=== PATIENT | female | born 1950 | race American Indian/Alaskan Native ===

== ENCOUNTER 2019-09-23 08:44 | Outpatient (CLI) | payer MEDICARE ==
--- NOTE | 2019-09-23 09:43 | Cat Scan Report ---
CT ABDOMEN AND PELVIS WITHOUT CONTRAST HISTORY: RETROPERITONEAL FIBROSIS. COMPARISON: None. TECHNIQUE: Helical CT images of the abdomen and pelvis were obtained without administration of intrav enous contrast. Sagittal and coronal reformatted images were reviewed. All CT scans at this location are performed using CT dose reduction for ALARA by means of automated exposure control. FINDINGS: Abdomen/pelvis: There is nonspecific soft tissue density containing scattered calcifications surroun ding the infrarenal aorta and IVC measuring up to 4.8 x 2.6 cm in axial plane and 6.8 cm in craniocau tao plane. This could be related to retroperitoneal fibrosis. There appears to be minimal tethering o f the mid right ureter with minimal dilatation of the proximal right ureter. The left ureter appears uninvolved. The liver is normal size and contour. 2 right hepatic lobe cysts measure 1 cm and 2.7 cm. The biliary system, pancreas, spleen, kidneys and adrenal glands are unremarkable. The bowel loops are normal caliber and wall thickness. Normal appendix. The uterus is mildly enlarged and lobular. Multiple small fibroids are identified some of which demon strate calcific degeneration. The adnexa, distal ureters and bladder are unremarkable. Lungs/bones: The lung bases are clear. Heart size is borderline. No acute osseous findings. IMPRESSION: Findings consistent with retroperitoneal fibrosis as described above. Liver cysts. Uterine fibroid disease. Signer Name: Janes Wilder Jr, MD Signed: 09/23/2019 9:38 AM Workstation Name: [id number]
== END 2019-09-23 08:45 | disposition home or self-care (01) ==
LOC: CT 08:44
PROVIDERS: ATTEND Internal Medicine Nephrology
DX: N85.2 Hypertrophy of uterus (principal); K76.89 Other specified diseases of liver; N13.5 Crossing vessel and stricture of ureter without hydronephrosis
CPT/HCPCS: 74176

== ENCOUNTER 2019-10-06 11:33 | Emergency (ER) | payer MEDICARE ==
[2019-10-06 11:41] VITALS: BP 126/81
--- NOTE | 2019-10-06 11:46 | Event Note ---
ED Screening Note Date of service: 10/06/19 Time: 11:43 ED Screening Note: 69 y o f presents with intermittent prod cough with fever x 1 week no relief with meds This initial assessment/diagnostic orders/clinical plan/treatment(s) is/are subject to change based on patients health status, clinical progression and re- assessment by fellow clinical providers in the ED. Further treatment and workup at subsequent clinical providers discretion. Patient/guardian urged not to elope from the ED as their condition may be serious if not clinically assessed and managed. Initial orders include: cxr
--- NOTE | 2019-10-06 13:01 | XRay Report ---
CHEST 2 VIEWS INDICATION / CLINICAL INFORMATION: cough/fever. COMPARISON: None available. FINDINGS: SUPPORT DEVICES: None. HEART / MEDIASTINUM: No significant abnormality. LUNGS / PLEURA: No significant pulmonary or pleural abnormality. No pneumothorax. ADDITIONAL FINDINGS: No significant additional findings. IMPRESSION: 1. No acute findings. Signer Name: Geovanni Biswas MD Signed: 10/06/2019 12:57 PM Workstation Name: [id number]
[2019-10-06] MEDS ORDERED: BENZONATATE 100 MG CAP PO ONE (13:10)
[2019-10-06] MEDS ORDERED: IBUPROFEN 600 MG TAB PO ONE (13:10)
--- NOTE | 2019-10-06 14:08 | Emergency Department Report ---
Upper Respiratory HPI - HPI Chief Complaint: Upper Respiratory Infection Stated Complaint: COLD/SINUS Time Seen by Provider: 10/06/19 11:51 Duration: 1 week URI Symptoms: Rhinorrhea: Yes, Sore Throat: No, Ear Pain: No, Cough: Yes, Shortness of Breath: No, Sick Contacts: No, Unable to Take Fluids: No, Urine Output Abnormal: No, Listless Behavior: No Other History: This is a 69-year-old female nontoxic, well nourished in appearance, no acute signs of distress presents to the ED with c/o of productive cough, rhinorrhea, nasal congestion x1 week. Patient describes productive cough as yellow mucus production. Patient denies any sick contacts. Patient denies any recent travels, long car, recent hospital stays. Patient denies any calf pain or calf tenderness. Patient denies any chest pain, short of breath, fever, chills, nausea, vomiting, hemoptysis, numbness, tingling, headache or stiff neck. Patient denies any allergies with past medical history of hypertension. - Home Meds and Allergies Home Medications: Home Medications Medication Instructions Recorded Confirmed Last Taken Amlodipine Besylate/Benazepril 1 cap PO DAILY 08/24/18 08/24/18 08/24/18 05:00 [Amlodipine-Benazepril 5-10 mg] 1 Ergocalciferol [Vitamin D2] 1 cap PO 1XW 08/24/18 08/24/18 08/20/18 1 Potassium Chloride 20 meq PO DAILY 08/24/18 08/24/18 08/23/18 20 meq Simvastatin 40 mg PO QHS 08/24/18 08/24/18 08/23/18 40 mg hydroCHLOROthiazide [HCTZ] 25 mg PO DAILY 08/24/18 08/24/18 08/24/18 25 mg Previous Rx's Medication Instructions Recorded Last Taken Type Benzonatate [Tessalon Perles] 100 mg PO Q8HR PRN #20 capsule 10/06/19 Unknown Rx Prednisone [predniSONE 10 mg 10 mg PO .TAPER #1 tab.ds.pk 10/06/19 Unknown Rx (6-Day Pack, 21 Tabs)] Allergies/Adverse Reactions: Allergies Allergy/AdvReac Type Severity Reaction Status Date / Time No Known Allergies Allergy Unverified 08/24/18 05:59 ED Review of Systems ROS: Stated complaint: COLD/SINUS Other details as noted in HPI Constitutional: denies: chills, fever Eyes: denies: eye pain, eye discharge, vision change ENT: congestion. denies: ear pain, throat pain Respiratory: cough. denies: shortness of breath, wheezing Cardiovascular: denies: chest pain, palpitations Endocrine: no symptoms reported Gastrointestinal: denies: abdominal pain, nausea, diarrhea Genitourinary: denies: urgency, dysuria, discharge Musculoskeletal: denies: back pain, joint swelling, arthralgia Skin: denies: rash, lesions Neurological: denies: headache, weakness, paresthesias Psychiatric: denies: anxiety, depression Hematological/Lymphatic: denies: easy bleeding, easy bruising ED Past Medical Hx - Past Medical History Previous Medical History?: Yes Hx Hypertension: Yes Additional medical history: elevated cholesterol,allergies - Surgical History Past Surgical History?: Yes Additional Surgical History: Right leg mass removal - Social History Smoking Status: Former Smoker - Medications Home Medications: Home Medications Medication Instructions Recorded Confirmed Last Taken Type Amlodipine Besylate/Benazepril 1 cap PO DAILY 08/24/18 08/24/18 08/24/18 05:00 History [Amlodipine-Benazepril 5-10 mg] 1 Ergocalciferol [Vitamin D2] 1 cap PO 1XW 08/24/18 08/24/18 08/20/18 History 1 Potassium Chloride 20 meq PO DAILY 08/24/18 08/24/18 08/23/18 History 20 meq Simvastatin 40 mg PO QHS 08/24/18 08/24/18 08/23/18 History 40 mg hydroCHLOROthiazide [HCTZ] 25 mg PO DAILY 08/24/18 08/24/18 08/24/18 History 25 mg Benzonatate [Tessalon Perles] 100 mg PO Q8HR PRN #20 capsule 10/06/19 Unknown Rx Prednisone [predniSONE 10 mg 10 mg PO .TAPER #1 tab.ds.pk 10/06/19 Unknown Rx (6-Day Pack, 21 Tabs)] ED Bronchiolitis Physical Exam - Exam General: Vital signs noted. No distress. Alert and acting appropriately. Neurologic: Alert and oriented, no deficits. Musculoskeletal: Unremarkable. ED Bronchiolitis Tests - Testing Testing: CXR: Normal/Negative ED Physical Exam - General Limitations: No Limitations General appearance: alert, in no apparent distress - Head Head exam: Present: atraumatic, normocephalic - Eye Eye exam: Present: normal appearance - Neck Neck exam: Present: normal inspection, full ROM. Absent: tenderness, men ingismus, lymphadenopathy - Respiratory Respiratory exam: Present: normal lung sounds bilaterally. Absent: respiratory distress, wheezes, rales, rhonchi, stridor, chest wall tenderness, accessory muscle use, decreased breath sounds, prolonged expiratory - Cardiovascular Cardiovascular Exam: Present: regular rate, normal rhythm, normal heart sounds. Absent: irregular rhythm, systolic murmur, diastolic murmur, rubs, gallop - Extremities Exam Extremities exam: Present: normal inspection, full ROM - Back Exam Back exam: Present: normal inspection, full ROM - Neurological Exam Neurological exam: Present: alert, oriented X3, normal gait - Psychiatric Psychiatric exam: Present: normal affect, normal mood - Skin Skin exam: Present: warm, dry, intact, normal color. Absent: rash ED Course Vital Signs 10/06/19 11:36 Temperature 99 F Pulse Rate 93 H Respiratory 18 Rate Blood Pressure 126/81 O2 Sat by Pulse 97 Oximetry - Reevaluation(s) Reevaluation #1: 10/06/19 14:19 Patient is speaking in full sentences with no signs of distress noted. ED Medical Decision Making - Medical Decision Making This is a 69-year-old female that presents with viral bronchitis. Patient is stable and was examined by me. Chest x-ray has been obtained and dictated by radiologist with normal exam. Patient is notified of x-ray results with no questions noted. She'll be treated with supportive care. Patient was instructed to increase hydration, rest and take Motrin for fever episodes. Patient received motrin and tesslone perrls in the ED. Vitals stable. Patient is nonfebrile and normal heart rate. Patient was instructed Follow-up with a primary care doctor in 3-5 days or if symptoms worsen and continue return to emergency room as soon as possible. At time time of discharge, the patient does not seem toxic or ill in appearance. No acute signs of distress noted. Patient agrees to discharge treatment plan of care. No further questions noted by the patient. Critical care attestation.: If time is entered above; I have spent that time in minutes in the direct care of this critically ill patient, excluding procedure time. ED Disposition Clinical Impression: Acute viral bronchitis Disposition: DC-01 TO HOME OR SELFCARE Is pt being admited?: No Does the pt Need Aspirin: No Condition: Stable Instructions: Acute Bronchitis (ED) Additional Instructions: Follow-up with a primary care doctor in 3-5 days or if symptoms worsen and continue return to emergency room as soon as possible. Increased rest, hydration, and take Motrin/Tylenol as prescribed for fever episode. Prescriptions: Prednisone [predniSONE 10 mg (6-Day Pack, 21 Tabs)] 10 mg PO .TAPER #1 tab.ds.pk Benzonatate [Tessalon Perles] 100 mg PO Q8HR PRN #20 capsule PRN Reason: Cough Referrals: PRIMARY CAREMD [Primary Care Provider] - 3-5 Days SILVIO CASTILLO MD [Staff Physician] - 3-5 Days [facility] [Outside] - 3-5 Days
== END 2019-10-06 14:28 | disposition home or self-care (01) ==
LOC: ED 11:33
DX: J20.8 Acute bronchitis due to other specified organisms (principal); I10 Essential (primary) hypertension; Z98.890 Other specified postprocedural states; Z87.891 Personal history of nicotine dependence; Z79.899 Other long term (current) drug therapy
CPT/HCPCS: 71046; 87400

== ENCOUNTER 2019-11-05 06:10 | Day surgery (SDC) | payer MEDICARE ==
[~2019-11-05 06:10] MED LIST: LACTATED RINGERS 1,000 ML IV SCH; ceFAZolin/Water 2 GM/20 ML 2 GM/20 ML SYRINGE IV NR
[2019-11-05] MEDS ORDERED: BACTERIOSTATIC SODIUM CHLORIDE 0.9% 30 ML VIAL INFILTRATI ONE (06:42)
[2019-11-05] MEDS ORDERED: MIDAZOLAM 2 MG/2 ML INJ IV NR (07:16)
[2019-11-05] MEDS ORDERED: LIDOCAINE (1%) 10 MG/1 ML VIAL 20 ML MDV ONE (07:22)
[2019-11-05] MEDS ORDERED: BUPIVACAINE/PF (0.25%) 2.5 MG/ML 30 ML VIAL INFILTRATI ONE ×2 (07:22→08:14)
--- NOTE | 2019-11-05 07:24 | Anesthesia Consultation ---
Anesthesia Consult and Med Hx Date of service: 11/05/19 - Airway Anesthetic Teeth Evaluation: Partials ROM Head & Neck: Adequate Mental/Hyoid Distance: Adequate Mallampati Class: Class II Intubation Access Assessment: Good - Pulmonary Exam CTA: Yes - Cardiac Exam Cardiac Exam: RRR - Pre-Operative Health Status ASA Pre-Surgery Classification: ASA2 Proposed Anesthetic Plan: MAC - Pulmonary Hx Smoking: Yes (ON/OFF FOR 7YRS; QUIT ) - Cardiovascular System Hx Hypertension: Yes (SINCE THE ) - Central Nervous System Hx Psychiatric Problems: No - Other Systems Hx Alcohol Use: No Hx Substance Use: No Hx Cancer: No
--- NOTE | 2019-11-05 07:25 | Anesthesia Day of Surgery ---
Anesthesia Day of Surgery - Day of Surgery Patient Examined: Yes Patient H&P Reviewed: Yes Patient is NPO: Yes
[2019-11-05] MEDS ORDERED: fentaNYL 100 MCG/2 ML INJ ONE (07:35)
[2019-11-05] MEDS ORDERED: GLYCOPYRROLATE 0.4 MG/2 ML INJ ONE (07:35)
[2019-11-05] MEDS ORDERED: ONDANSETRON 4 MG/2 ML INJ ONE (07:35)
[2019-11-05] MEDS ORDERED: dexAMETHasone 20 MG/5 ML VIAL ONE (07:35)
[2019-11-05] MEDS ORDERED: LIDOCAINE MPF (2%) 20 MG/1 ML VIAL 5 ML ONE (07:35)
[2019-11-05] MEDS ORDERED: SUCCINYLCHOLINE CHLORIDE 200 MG/10 ML INJ MDV ONE (07:35)
[2019-11-05] MEDS ORDERED: PHENYLEPHRINE/NS 1,000 MCG/10 ML SYRINGE (OR USE) IV ONE (07:35)
[2019-11-05] MEDS ORDERED: PROPOFOL 200 MG/20 ML VIAL IV ONE ×2 (07:35→08:17)
[2019-11-05] MEDS ORDERED: LIDOCAINE (1%) 10 MG/1 ML VIAL 20 ML MDV INFILTRATI ONE (08:14)
[2019-11-05] MEDS ORDERED: SODIUM CHLORIDE 0.9% IRR 1,500 ML BOTTLE IR ONE (08:14)
--- NOTE | 2019-11-05 08:35 | Short Stay Summary ---
Short Stay Documentation Date of service: 11/05/19 - History Principal diagnosis: soft tissue mass right arm H&P: obtained from office - Allergies and Medications Current Medications: Allergies No Known Allergies Allergy (Verified 11/04/19 11:01) Home Medications Medication Instructions Recorded Confirmed Last Taken Type hydroCHLOROthiazide [HCTZ] 25 mg PO DAILY 08/24/18 11/04/19 11/04/19 History AtorvaSTATin [Lipitor] 20 mg PO QDAY 11/04/19 11/04/19 11/04/19 History Multivit-Minerals/Folic Acid 0.4 mg PO DAILY 11/04/19 11/04/19 11/04/19 History [Adult One Daily Multivit Tab] lisinopriL [Zestril TAB] 10 mg PO QDAY 11/04/19 11/04/19 11/04/19 History Active Medications Lactated Ringer's (Lactated Ringers) 1,000 mls @ 100 mls/hr IV DIRECT JESSICA Last Admin: 11/05/19 07:05 Dose: 100 mls/hr Documented by: Cefazolin Sodium (Ancef/Sterile Water 2 Gm/20 Ml) 2 gm in 20 mls @ 80 mls/hr IV PREOP NR Stop: 11/05/19 23:59 Midazolam HCl (Versed) 2 mg IV ONCE NR Stop: 11/05/19 22:00 Last Admin: 11/05/19 07:20 Dose: 2 mg Documented by: - Brief post op/procedure progress note Date of procedure: 11/05/19 Pre-op diagnosis: right arm soft tissue mass Post-op diagnosis: same Procedure: excision soft tissue mass right arm Anesthesia: MAC, local Findings: 5 cm lobulated soft tissue mass - lipoma Surgeon: CICI ELLIS Estimated blood loss: minimal Pathology: list (soft tissue mass right arm) Specimen disposition: to lab Condition: stable - Hospital course Hospital course: Pt observed in PACU and discharged to home in stable condition when criteria met - Disposition Condition at discharge: Good Disposition: - TO HOME OR SELFCARE Short Stay Discharge Plan Activity: no restrictions Wound: open to air Additional Instructions: PLEASE SEE PRINTED ADDITIONAL INSTRUCTIONS Follow up with: ZARINA GONZALEZ NP-C [Primary Care Provider] - 7 Days CICI ELLIS DO [Staff Physician] - 14 Days Prescriptions: traMADoL [Ultram 50 MG tab] 50 mg PO Q6HR PRN #8 tablet PRN Reason: Pain , Severe (7-10)
[2019-11-05 09:37] VITALS: BP 117/57
--- NOTE | 2019-11-06 16:08 | Operative Report ---
Operative Report Operative Report: Date of procedure: 11/05/19 Pre-op diagnosis: right arm soft tissue mass Post-op diagnosis: same Procedure: excision soft tissue mass right arm Anesthesia: MAC, local Findings: 5 cm lobulated soft tissue mass - lipoma Surgeon: CICI ELLIS Estimated blood loss: minimal Pathology: list (soft tissue mass right arm) Specimen disposition: to lab Condition: stable - Hospital course Hospital course: Pt observed in PACU and discharged to home in stable condition when criteria met HPI and indication: 69 yo F with right upper mass who presented to the office for evaluation. The patient was having pain in the region and it was recommended that the mass be removed. All risks, benefits, alternatives to surgery discussed with the patient and questions answered. Consent obtained. Procedure in detail: Pt identified in the preoperative area and taken back to the operating room and placed on the operating room in supine position. The right upper arm was prepped and draped in the usual sterile fashion and time out performed. Local anesthetic was infiltrated into the skin and subcutaneous tissue at the intended incision site. An incision was made over the area of the soft tissue mass using 15 blade and dissection carried down through skin and subcutaneous tissue using electrocautery. The mass was encountered and circumfrentially dissected free from the surrounding tissue using electrocautery and blunt dissection. The mass was removed from the wound and measured at 5cm. It was lobulated and fatty consistent with lipoma. The specimen was passed off the table. The wound was irrigated and hemostasis ensured. The wound was then closed in two layers. The deep dermal layer was closed using 3-0 vicryl interrupted sutures and the skin closed with 4-0 monocryl subcuticular running stitch and skin glue. At the end of the case, all sponge, instrument, and sharp counts were correct x 2. The patient was awoken from anesthesia and transferred to PACU in stable condition.
== END 2019-11-05 10:25 | disposition home or self-care (01) ==
LOC: OR 06:10
PROVIDERS: ATTEND Surgery
DX: R22.31 Localized swelling, mass and lump, right upper limb (principal); D17.21 Benign lipomatous neoplasm of skin and subcutaneous tissue of right arm; I10 Essential (primary) hypertension; E78.5 Hyperlipidemia, unspecified; E78.00 Pure hypercholesterolemia, unspecified; Z79.899 Other long term (current) drug therapy; Z87.891 Personal history of nicotine dependence; Z98.41 Cataract extraction status, right eye; Z98.42 Cataract extraction status, left eye; Z98.890 Other specified postprocedural states
CPT/HCPCS: 24071; 36415; 84132; 88307; J0330; J0690; J1100; J2250; J2370; J2405; J2704; J3010; J7120; 88304

== ENCOUNTER 2021-02-09 18:00 | Emergency (ER) | payer MEDICARE ==
--- NOTE | 2021-02-09 20:31 | Cat Scan Report ---
CT NECK WITHOUT CONTRAST HISTORY: Right lateral neck pain COMPARISON: None. TECHNIQUE: Routine CT of the neck is performed without intravenous contrast. All CT scans at [facility] are performed using CT dose reduction for ALARA by means of automated exposure control. CONTRAST: None FINDINGS: Skull Base: No significant abnormality. Parotid, Carotid, Retropharyngeal, Prevertebral, Pharyngeal Mucosal, and Human Resources Records Clerk Spaces: No abnorm al mass, enhancing lesion or other significant abnormality. Airway: Patent and without significant abnormality. Lymphatics: No lymphadenopathy. Vasculature: Mild atherosclerotic calcification in both carotid bulbs. Osseous Structures: No aggressive appearing bone lesions. Mild degenerative disc disease at C4-5 and C5-6. Additional findings: None. IMPRESSION: 1. No significant abnormality. Signer Name: Ariel Amaro MD Signed: 02/09/2021 8:27 PM Workstation Name: [id number]
--- NOTE | 2021-02-09 20:58 | Emergency Department Report ---
ED Neck Pain/Injury HPI - General Chief Complaint: Neck Pain/Injury Stated Complaint: PAIN IN RIGHT SIDE OF NECK Time Seen by Provider: 02/09/21 19:47 Mode of arrival: Ambulatory Limitations: No Limitations - History of Present Illness Initial Comments: Patient is a 70-year-old female presents emergency room complaints of right- sided neck pain that exacerbated this morning. She states that she has had the pain intermittently for a couple of months but began having sharp pain this morning. She denies any chest pain, shortness of breath, nausea, vomiting, diarrhea, numbness, weakness, bowel or bladder incontinence, fever, neck stiffness, sore throat, vision changes. No past medical history. No allergies medications. - Related Data Home Medications Medication Instructions Recorded Confirmed Last Taken hydroCHLOROthiazide [HCTZ] 25 mg PO DAILY 08/24/18 11/04/19 11/04/19 AtorvaSTATin [Lipitor] 20 mg PO QDAY 11/04/19 11/04/19 11/04/19 Multivit-Minerals/Folic Acid 0.4 mg PO DAILY 11/04/19 11/04/19 11/04/19 [Adult One Daily Multivit Tab] lisinopriL [Zestril TAB] 10 mg PO QDAY 11/04/19 11/04/19 11/04/19 Previous Rx's Medication Instructions Recorded Last Taken Type traMADoL [Ultram 50 MG tab] 50 mg PO Q6HR PRN #8 tablet 11/05/19 Unknown Rx Meloxicam [Mobic] 7.5 mg PO QDAY #14 tablet 02/09/21 Unknown Rx Menthol/Camphor [[place] 1 applicatio TP BID #18 oint...g. 02/09/21 Unknown Rx Ointment] Allergies Allergy/AdvReac Type Severity Reaction Status Date / Time No Known Allergies Allergy Verified 11/04/19 11:01 ED Review of Systems ROS: Stated complaint: PAIN IN RIGHT SIDE OF NECK Other details as noted in HPI Comment: All other systems reviewed and negative ED Past Medical Hx - Past Medical History Hx Hypertension: Yes (SINCE THE ) Hx Diabetes: Yes Hx HIV: No Additional medical history: elevated cholesterol,allergies - Surgical History Hx Breast Surgery: Yes (L EXCISIONAL BX(BENIGN)) Additional Surgical History: Right leg mass removal, mass removal from right arm - Social History Smoking Status: Never Smoker Substance Use Type: None - Medications Home Medications: Home Medications Medication Instructions Recorded Confirmed Last Taken Type hydroCHLOROthiazide [HCTZ] 25 mg PO DAILY 08/24/18 11/04/19 11/04/19 History AtorvaSTATin [Lipitor] 20 mg PO QDAY 11/04/19 11/04/19 11/04/19 History Multivit-Minerals/Folic Acid 0.4 mg PO DAILY 11/04/19 11/04/19 11/04/19 History [Adult One Daily Multivit Tab] lisinopriL [Zestril TAB] 10 mg PO QDAY 11/04/19 11/04/19 11/04/19 History traMADoL [Ultram 50 MG tab] 50 mg PO Q6HR PRN #8 tablet 11/05/19 Unknown Rx Meloxicam [Mobic] 7.5 mg PO QDAY #14 tablet 02/09/21 Unknown Rx Menthol/Camphor [[place] 1 applicatio TP BID #18 oint...g. 02/09/21 Unknown Rx Ointment] ED Physical Exam - General Limitations: No Limitations General appearance: alert, in no apparent distress - Head Head exam: Present: atraumatic, normocephalic - Eye Eye exam: Present: normal appearance - ENT ENT exam: Present: normal orophraynx, mucous membranes moist - Neck Neck exam: Present: normal inspection, tenderness (mild right anterior lateral ttp overlying the SCM muscle, mild pain with rotation of the neck, no midline or paraspinal ttp, no carotid bruit or thrill, no edema, no skin changes, no increased warmth), full ROM, lymphadenopathy (very small right anterior cervical LAD, no erythema, no ttp). Absent: meningismus, thyromegaly - Respiratory Respiratory exam: Present: normal lung sounds bilaterally. Absent: respiratory distress, wheezes, rales, rhonchi, stridor, chest wall tenderness, accessory muscle use, decreased breath sounds, prolonged expiratory - Cardiovascular Cardiovascular Exam: Present: regular rate, normal rhythm, normal heart sounds. Absent: systolic murmur, diastolic murmur, rubs, gallop - Back Exam Back exam: Present: normal inspection, full ROM. Absent: paraspinal tenderness, vertebral tenderness - Neurological Exam Neurological exam: Present: alert, oriented X3, CN II-XII intact, normal gait. Absent: motor sensory deficit - Psychiatric Psychiatric exam: Present: normal affect, normal mood - Skin Skin exam: Present: warm, dry, intact ED Course Vital Signs 02/09/21 02/09/21 19:22 21:09 Temperature 98.6 F Pulse Rate 69 56 L Respiratory 18 18 Rate Blood Pressure 133/70 Blood Pressure 131/68 [Left] O2 Sat by Pulse 98 98 Oximetry ED Medical Decision Making - Radiology Data Radiology results: report reviewed Ordering Physician: MARLYS ROMERO Date of Service: 02/09/21 Procedure(s): CT neck wo con Accession Number(s): [id number] cc: MARLYS ROMERO CT NECK WITHOUT CONTRAST HISTORY: Right lateral neck pain COMPARISON: None. TECHNIQUE: Routine CT of the neck is performed without intravenous contrast. All CT scans at this location are performed using CT dose reduction for ALARA by means of automated exposure control. CONTRAST: None FINDINGS: Skull Base: No significant abnormality. Parotid, Carotid, Retropharyngeal, Prevertebral, Pharyngeal Mucosal, and Track Moving Machine Operator Spaces: No abnormal mass, enhancing lesion or other significant abnormality. Airway: Patent and without significant abnormality. Lymphatics: No lymphadenopathy. Vasculature: Mild atherosclerotic calcification in both carotid bulbs. Osseous Structures: No aggressive appearing bone lesions. Mild degenerative disc disease at C4-5 and C5-6. Additional findings: None. IMPRESSION: 1. No significant abnormality. Signer Name: Ariel Amaro MD Signed: 02/09/2021 8:27 PM Workstation Name: [id number] Transcribed By: JAZMYN Dictated By: Ariel Amaro MD Electronically Authenticated By: Ariel Amaro MD Signed Date/Time: 02/09/212026 DD/ 25 TD/TT: Print - Medical Decision Making Patient is a 70-year-old female presents emergency room complaints of right- sided neck pain that exacerbated this morning. She states that she has had the pain intermittently for a couple of months but began having sharp pain this morning. She denies any chest pain, shortness of breath, nausea, vomiting, warren rrhea, numbness, weakness, bowel or bladder incontinence, fever, neck stiffness, sore throat, vision changes. No past medical history. No allergies medications. Vitals are normal. On exam:mild right anterior lateral ttp overlying the SCM muscle, mild pain with rotation of the neck, no midline or paraspinal ttp, no carotid bruit or thrill, no edema, no skin changes, no increased warmth, very small right anterior cervical LAD, no erythema, no ttp, no focal neurodeficits. CT neck without contrast 1. No significant abnormality. Discussed all results with patient answered questions. Patient given prescription for Mobic and [place] balm ointment. Advised patient Please use medication as prescribed. Follow-up with your primary care doctor. Follow- up with orthopedic doctor. May use ice for 15 minutes at a time, heating pad 15 minutes at a time. Return to emergency room for any worsening symptoms. Critical care attestation.: If time is entered above; I have spent that time in minutes in the direct care of this critically ill patient, excluding procedure time. ED Disposition Clinical Impression: Neck pain DDD (degenerative disc disease) Qualifiers: Spinal region: unspecified cervical region Qualified Code(s): M50.30 - Other cervical disc degeneration, unspecified cervical region Disposition: TO HOME OR SELFCARE Is pt being admited?: No Does the pt Need Aspirin: No Condition: Stable Instructions: Degenerative Disk Disease Additional Instructions: Please use medication as prescribed. Follow-up with your primary care doctor. Follow-up with orthopedic doctor. May use ice for 15 minutes at a time, heating pad 15 minutes at a time. Return to emergency room for any worsening symptoms. Prescriptions: Meloxicam [Mobic] 7.5 mg PO QDAY #14 tablet Menthol/Camphor [[place] Ointment] 1 applicatio TP BID #18 oint...g. Referrals: BASILIA DUNN II, MD [Staff Physician] - 2-3 Days your, primary care doctor [Other] - 2-3 Days Time of Disposition: 20:57 Print Language: CITIZEN OF [place]
[2021-02-09 21:10] VITALS: BP 131/68
== END 2021-02-09 21:09 | disposition home or self-care (01) ==
LOC: ED 18:00
DX: M50.30 Other cervical disc degeneration, unspecified cervical region (principal); I10 Essential (primary) hypertension; E11.9 Type 2 diabetes mellitus without complications; E78.00 Pure hypercholesterolemia, unspecified; Z79.899 Other long term (current) drug therapy; Z98.890 Other specified postprocedural states
CPT/HCPCS: 70490

== ENCOUNTER 2022-02-28 10:50 | Outpatient (CLI) | payer MEDICARE ==
--- NOTE | 2022-02-28 12:59 | Cat Scan Report ---
CT ABDOMEN AND PELVIS WITHOUT CONTRAST HISTORY: R31.29 HEMATURIA COMPARISON: Prior CT on 09/23/2019 TECHNIQUE: Routine abdominal and pelvic CT exam performed without contrast. Lack of intravenous cont rast limits evaluation of the vascular and solid organs.. All CT scans at this location are performed using CT dose reduction for ALARA by means of automated exposure control. FINDINGS: CT ABDOMEN: Soft tissue attenuation material with associated heterogeneous calcifications surrounding the aorta and infrarenal IVC as well as both proximal ureters appear similar to the prior exam. Lung Bases: Mild chronic scarring in both lung bases. Liver: Stable hepatic cysts. Biliary: No significant abnormality. Spleen: No significant abnormality. Unenlarged. Pancreas: No significant abnormality. Adrenals: No significant abnormality. Kidneys: Mild distention of both proximal ureters, similar to the prior exam. Unchanged right renal c yst. Lymphatics: No lymphadenopathy. Vasculature: Abdominal aortic and branch vessel atherosclerotic calcifications without aortic aneurys m. Bowel/Peritoneum: No significant abnormality. No free air. No free fluid. Normal appendix. CT PELVIC: : Enlarged uterus containing multiple calcified fibroids again seen. Lymphatics: No lymphadenopathy. Osseous Structures: No aggressive appearing osseous lesions. Additional Findings: None IMPRESSION: 1. 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 (Another possibility would be r etroperitoneal lymphoma but this is considered to be less likely.) There is associated mild distentio n of both proximal ureters, likely due to obstruction from the process in the retroperitoneum. Signer Name: Ariel Amaro MD Signed: 02/28/2022 12:55 PM Workstation Name: [email or web address]
== END 2022-02-28 10:51 | disposition home or self-care (01) ==
LOC: CT 10:50
PROVIDERS: ATTEND Urology
DX: R31.29 Other microscopic hematuria (principal)
CPT/HCPCS: 74176